=== PATIENT | female | born 1970 | race Caucasian/White ===

== ENCOUNTER 2018-12-31 19:42 | Emergency (ER) | payer MEDICAID ==
[~2018-12-31] VITALS: Ht 167.6 cm; Wt 72.6 kg
--- NOTE | 2018-12-31 20:39 | NUR ---
Patient in bed, no acute distress noted. Pending ER MD evaluation. VSS Family at bedside.
--- NOTE | 2018-12-31 20:51 | NUR ---
MONTRELL BILLINGSLEY at bedside for patient evaluation.
[2018-12-31] MEDS ORDERED: ONDANSETRON 4 MG/2 ML VIAL ONE (20:57)
[2018-12-31] MEDS ORDERED: MORPHINE SULFATE 4 MG/1 ML DISP.SYRIN ONE (20:57)
[2018-12-31] MEDS ORDERED: TDAP DIPH,PERTUSS,TET VAC/PF 0.5 ML DISP.SYRIN IM ONE ×2 (21:00→21:04)
[2018-12-31] MEDS ORDERED: MORPHINE SULFATE 4 MG/1 ML DISP.SYRIN IM ONE (21:00)
[2018-12-31] MEDS ORDERED: ONDANSETRON 4 MG/2 ML VIAL IM ONE (21:00)
--- NOTE | 2018-12-31 21:22 | NUR ---
Patient in bed, no acute distress noted. Family at bedside. VSS
--- NOTE | 2018-12-31 21:41 | NUR ---
Patient back from CT. No acute distress noted. VSS
--- NOTE | 2018-12-31 21:56 | NUR ---
MONTRELL BILLINGSLEY at bedside.
[2018-12-31] MEDS ORDERED: LET TOPICAL SOLUTION 8 ML UDC ONE (22:06)
[2018-12-31] MEDS ORDERED: LIDOCAINE HCL 2% 20 ML VIAL TP ONE (22:15)
[2018-12-31] MEDS ORDERED: NEOMY/BACITRA/POLYMYXIN B OINT UD PACKET TP ONE ×2 (22:15→22:16)
[2018-12-31] MEDS ORDERED: SODIUM BICARBONATE 4.2 % (NEUT) 5 ML VIAL TP ONE (22:15)
[2018-12-31] MEDS ORDERED: CEFTRIAXONE 1 G in IV DEXTROSE 5% 50 ML IV ONE (22:30)
[2018-12-31] MEDS ORDERED: LET TOPICAL SOLUTION 8 ML UDC TP ONE (22:30)
[2018-12-31] MEDS ORDERED: IV NORMAL SALINE 1000 ML BAG IV ONE (22:30)
[2018-12-31] MEDS ORDERED: CEFTRIAXONE 1 G VIAL ONE (22:37)
--- NOTE | 2018-12-31 22:41 | NUR ---
CALLED [facility]. SPOKE TO AKUA. WILL HAVE GE BILLINGSLEY CALL
--- NOTE | 2018-12-31 23:16 | NUR ---
Patient does not wish to proceed with medical care recommended by Dr. Mcclendon. Patient given information related to possible complications, up to and including , which could occur as a result of leaving the hospital at this time. Patient verbalizes understanding of risks involved due to leaving against medical advice. Patient has signed AMA form. Peripheral IV removed prior to d/c. All belongings with patient.
== END 2018-12-31 23:19 | disposition left against medical advice (07) ==
LOC: ER 19:42
DX: S62.311B Displaced fracture of base of second metacarpal bone, left hand, initial encounter for open fracture (principal); S62.323B Displaced fracture of shaft of third metacarpal bone, left hand, initial encounter for open fracture; S13.4XXA Sprain of ligaments of cervical spine, initial encounter; V49.9XXA Car occupant (driver) (passenger) injured in unspecified traffic accident, initial encounter; Y93.89 Activity, other specified; Y92.89 Other specified places as the place of occurrence of the external cause; Y99.8 Other external cause status
CPT/HCPCS: 29125; 72040; 73110; 73130; 90471; 90715; 96365; 96372 ×2; 99283; J0696; J2270; J2405; J3490; A4217; A4663